=== PATIENT | female | born 1990 | race Caucasian/White ===

== ENCOUNTER 2024-02-14 19:08 | Emergency (ER) | payer OTHER, SELFPAY ==
[2024-02-14 19:19] VITALS: BP 116/79; PULSE 83; TEMP 36.6; O2SAT 100; BMI 34.2
--- NOTE | 2024-02-14 19:25 | XR_ITS ---
The [place] [id number] Patient Name: AMBER MARCOS MRN: [id number] date: 1990 Sex: F Assigned Patient Location: ER Current Patient Location: Accession/Order Number: [id number] Exam Date: 02/14/2024 20:09 Report Date: 02/14/2024 22:00 At the request of: CARINE QUILES Procedure: XR tibia fibula RT 2V EXAM: XR tibia fibula RT 2V , 02/14/2024 HISTORY: Atraumatic pain COMPARISON: None. TECHNIQUE: X-rays of the right tibia and fibula, 4 views. FINDINGS: The bony structures and joint spaces are unremarkable. No fracture or dislocation. The bones are well-mineralized. No obvious soft tissue swelling. No subcutaneous air is seen. Included knee joint and ankle joint appears unremarkable. XR/XR tibia fibula RT 2V IMPRESSION: Unremarkable x-rays of the right tibia and fibula. Electronically authenticated by: LINDSAY AGUILERA Date: 02/14/2024 22:00
--- NOTE | 2024-02-14 19:30 | ED.GENADUL1 ---
HPI HPI - General Adult General Chief complaint: Extremity Injury, Lower Stated complaint: EXTREMITY PAIN Time Seen by Provider: 02/14/24 19:22 Source: patient Mode of arrival: walk-in Limitations: no limitations History of Present Illness HPI narrative: 33-year-old female presents for right anterior lower leg pain. She has had it for a week and there was no injury or unusual activity. The knee and ankle do not hurt but the pain is wrapping around to her calf. It is worse when she walks on it. She has never had an issue with that leg Related Data Home Medications ?Medication ?Instructions ?Recorded ?Confirmed ascorbic acid (vitamin C) 500 mg 500 mg PO DAILY 02/14/24 02/14/24 tablet (C-500) cetirizine 10 mg tablet (24Hour 10 mg PO DAILY 02/14/24 02/14/24 Allergy) cholecalciferol (vitamin D3) 50 50 mcg PO DAILY 02/14/24 02/14/24 mcg (2,000 unit) capsule (Vitamin D3) escitalopram oxalate 10 mg tablet 10 mg PO DAILY 02/14/24 02/14/24 levonorgestrel 0.15 mg-ethinyl See Rx Instructions PO .COMPLEX 02/14/24 02/14/24 estradiol 30 mcg tablets,3 mos pack(91) levothyroxine 137 mcg tablet 137 mcg PO DAILY 02/14/24 02/14/24 (Euthyrox) multivitamin (Daily Multi-Vitamin 1 tab PO DAILY 02/14/24 02/14/24 tablet) Allergies Allergy/AdvReac Type Severity Reaction Status Date / Time No Known Drug Allergies Allergy Verified 02/14/24 19:15 Opioid HPI Opioid Management Most Recent Opioid Data: No Data to Display Review of Systems ROS Narrative A ten point review of systems is negative except as noted above. Exam Narrative Exam Narrative: Nurses note and vital signs reviewed and patient is not hypoxic. General: The patient appears well and in no apparent distress. Patient is resting comfortably on cart. Skin: Warm, dry, no pallor noted. There is no rash noted. Head: Normocephalic, atraumatic Eye: Normal conjunctiva, no drainage Ears, Nose, Mouth, and Throat: oral mucosa is moist. Nares patent. Cardiovascular: Regular Rate and Rhythm Respiratory: Patient is in no distress, no accessory muscle use Back: non-tender GI: Soft and nontender Musculoskeletal: The right leg is examined. Dorsalis pedis pulse 2+. No tenderness in the ankle or any swelling in the ankle. The right knee also is nontender and nonswollen. She has some tenderness in the anterior lower leg, midportion. There is no bruise or rash or break in the skin. Neurological: A&O, normal speech Psychiatric: Cooperative Constitutional Vital Signs, click to edit/add: Last Vital Signs Temp 97.9 F 02/14/24 19:19 Pulse 83 02/14/24 19:19 Resp 14 02/14/24 19:19 BP 116/79 02/14/24 19:19 Pulse Ox 100 02/14/24 19:19 O2 Del Method Room Air 02/14/24 19:19 Course Vital Signs Vital signs: Vital Signs Temperature 97.9 F 02/14/24 19:19 Pulse Rate 83 02/14/24 19:19 Respiratory Rate 14 02/14/24 19:19 Blood Pressure 116/79 02/14/24 19:19 Pulse Oximetry 100 02/14/24 19:19 Oxygen Delivery Method Room Air 02/14/24 19:19 Temperature 97.9 F 02/14/24 19:19 Pulse Rate 83 02/14/24 19:19 Respiratory Rate 14 02/14/24 19:19 Blood Pressure 116/79 02/14/24 19:19 Pulse Oximetry 100 02/14/24 19:19 Oxygen Delivery Method Room Air 02/14/24 19:19 Medical Decision Making MDM Narrative Medical decision making narrative: Superficial thrombophlebitis is identified. She was recommended rest warm compresses and ibuprofen. Findings are discussed thoroughly with the patient. Differential Diagnosis Differential Diagnosis: Superficial thrombophlebitis, DVT, muscle strain Lab Data Lab results reviewed: Yes I reviewed the patient's lab results Labs: Lab Results 02/14/24 Range/Units 19:45 D-Dimer 1.16 H* (<=0.59) mg/L FEU Imaging Data Tibia-fibula x-ray: My impression: No acute findings Discharge Plan Discharge Stand Alone Forms: Portal Instructions Chief Complaint: Extremity Injury, Lower Clinical Impression: Superficial thrombophlebitis Patient Disposition: Home, Self-Care Time of Disposition Decision: 21:24 Condition: Good Mode of Transportation: Private Vehicle Prescriptions / Home Meds: No Action levothyroxine [Euthyrox] 137 mcg tablet 137 mcg PO DAILY escitalopram oxalate 10 mg tablet 10 mg PO DAILY multivitamin [Daily Multi-Vitamin] Tablet 1 tab PO DAILY ascorbic acid (vitamin C) [C-500] 500 mg tablet 500 mg PO DAILY cholecalciferol (vitamin D3) [Vitamin D3] 50 mcg (2,000 unit) capsule 50 mcg PO DAILY cetirizine [24Hour Allergy] 10 mg tablet 10 mg PO DAILY levonorgestrel-ethinyl estrad 0.15 mg-30 mcg (91) tablets,dose pack,3 month See Rx Instructions .ROUTE .COMPLEX Rx Instructions: take 1 tablet daily following the order on blister card(s) Print Language: [place] Instructions: Superficial Thrombophlebitis (ED) Additional Instructions: Warm compresses, elevate and continue ibuprofen Referrals: Haley Stovall NP [Primary Care Provider] - 1 week
[2024-02-14 20:13] LABS: D Dimer 1.16 mg/L FEU (<=0.59)
--- NOTE | 2024-02-14 20:29 | US_ITS ---
The [address] [address] Patient Name: AMBER MARCOS MRN: [id number] date: 1990 Sex: F Assigned Patient Location: ER Current Patient Location: ER Accession/Order Number: [id number] Exam Date: 02/14/2024 20:35 Report Date: 02/14/2024 23:02 At the request of: CARINE QUILES Procedure: US venous doppler LE RT ULTRASOUND OF THE LOWER EXTREMITY VENOUS RIGHT HISTORY: Edema and pain. COMPARISON: None. TECHNIQUE: US with quinonez scale and color doppler of extremity veins. Doppler spectral analysis and color flow were performed. FINDINGS: There is no evidence of thrombus within the visualized veins. There is adequate phasic and spontaneous flow. There is adequate compression. There is adequate augmentation. No evidence of DVT within the visualized veins. There is some noncompressibility involving segments of superficial saphenous vein. US/US venous doppler LE RT IMPRESSION: 1. No evidence of DVT within visualized veins of right lower extremity 2. Superficial thrombophlebitis. Electronically authenticated by: BONY OWUSU Date: 02/14/2024 23:02
== END 2024-02-14 21:40 | disposition home or self-care (01) ==
PROVIDERS: Emergency Provider Emergency Medicine; PCP Nurse Practitioner Family
DX: I80.01 Phlebitis and thrombophlebitis of superficial vessels of right lower extremity (principal)
CPT/HCPCS: 36415; 73590; 85378; 93971; 99285

== ENCOUNTER 2024-06-05 14:01 | Emergency (ER) | payer OTHER, SELFPAY ==
[2024-06-05] VITALS (14 sets, daily range): BP systolic 108–120; BP diastolic 67–79; PULSE 60–109; TEMP 36.7; O2SAT 97–100; BMI 34.5
--- NOTE | 2024-06-05 14:24 | ECG_ITS ---
The [facility] Test Date: 2024-06-05 Pat Name: AMBER HINES Department: Room: - Gender: Female Community Service Representative: : 1990 Requested By: [id number] Order Number: [id number] Reading MD: RICO CURRY Measurements Intervals [place] Rate: 65 P: 52 KS: 170 QRS: 117 QRSD: 90 T: 21 QT: 408 QTc: 419 Interpretive Statements 1100 Sinus rhythm 5120 Possible right ventricular hypertrophy Non-Specific T wave inversion in III 9130 borderline ECG No previous ECG available for comparison Electronically Signed On 06-06-2024 5:13:31 EST by RICO CURRY
--- NOTE | 2024-06-05 14:26 | ED_ITS ---
HPI - Chest Pain General Chief Complaint: Chest Pain Stated Complaint: CHEST PAIN Time Seen by Provider: 06/05/24 14:06 Source: patient Mode of arrival: walk-in Limitations: no limitations History of Present Illness HPI narrative: Patient is a 34-year-old female who presents to the emergency department for a 1 hour history of frontal headache and blurred vision. She states she was at work when she developed blurred vision followed by a bitemporal headache. She states she felt very shaky and reports chest pain. When she is asked to clarify, she states she feels butterflies in her chest. She has no sharp pain. She states someone at work checked her blood pressure and it was 140/90. She states that she was recently referred to a digital strategist by her primary care provider because she had been having intermittent chest discomfort, an EKG was performed in the office and her primary care provider told her that she looks like she has had a heart attack at some point . She was instructed to start taking aspirin. She has an appointment in 6 days with the digital strategist. She has no concern for . She had some nausea when the headache began but has not had any vomiting or diarrhea. No fevers or upper respiratory symptoms. At this time she states she still has the headache and feels weak and shaky. Related Data Home Medications ?Medication ?Instructions ?Recorded ?Confirmed ascorbic acid (vitamin C) 500 mg 500 mg PO DAILY 02/14/24 06/05/24 tablet (C-500) cetirizine 10 mg tablet (24Hour 10 mg PO DAILY 02/14/24 06/05/24 Allergy) cholecalciferol (vitamin D3) 50 50 mcg PO DAILY 02/14/24 06/05/24 mcg (2,000 unit) capsule (Vitamin D3) escitalopram oxalate 10 mg tablet 10 mg PO DAILY 02/14/24 06/05/24 levonorgestrel 0.15 mg-ethinyl See Rx Instructions PO .COMPLEX 02/14/24 02/14/24 estradiol 30 mcg tablets,3 mos pack(91) levothyroxine 137 mcg tablet 137 mcg PO DAILY 02/14/24 06/05/24 (Euthyrox) multivitamin (Daily Multi-Vitamin 1 tab PO DAILY 02/14/24 06/05/24 tablet) aspirin 81 mg chewable tablet 81 mg PO DAILY 06/05/24 06/05/24 (Aspirin Childrens) Allergies Allergy/AdvReac Type Severity Reaction Status Date / Time No Known Drug Allergies Allergy Verified 06/05/24 14:16 Review of Systems ROS Constitutional Denies: fever or chills Ears, nose, mouth, and throat Denies: throat pain Cardiovascular Reports: chest pain Respiratory Denies: shortness of breath or cough Gastrointestinal Reports: nausea; Denies: abdominal pain, vomiting or diarrhea Musculoskeletal Denies: back pain or neck pain Integumentary/Breast Denies: rash Neurological Reports: headache; Denies: numbness in extremities or weakness in extremities Hematologic/Lymphatic Denies: easy bruising or easy bleeding PFSH PFSH Social History Little interest or pleasure in doing things: not at all Feeling down, depressed, or hopeless: not at all Exam Narrative Exam Narrative: Gen.: Awake, alert, in no distress Head: Normocephalic, atraumatic ENT: Moist mucous membranes Respiratory: No respiratory distress, lungs clear bilaterally Cardio: Regular rate and rhythm Gastrointestinal: Abdomen is soft, nondistended and nontender to palpation Extremities: Moves extremities equally Psych: Normal mood and affect Neuro: No focal neuro deficit, alert and oriented with clear speech Skin: Warm, dry, intact Constitutional Vital Signs, click to edit/add: Last Vital Signs Temp 98.0 F 06/05/24 14:12 Pulse 64 06/05/24 14:12 Resp 18 06/05/24 14:12 BP 120/74 06/05/24 14:12 Pulse Ox 100 06/05/24 14:12 O2 Del Method Room Air 06/05/24 14:12 Course Vital Signs Vital signs: Vital Signs Temperature 98.0 F 06/05/24 14:12 Pulse Rate 64 06/05/24 14:12 Respiratory Rate 18 06/05/24 14:12 Blood Pressure 120/74 06/05/24 14:12 Pulse Oximetry 100 06/05/24 14:12 Oxygen Delivery Method Room Air 06/05/24 14:12 Temperature 98.0 F 06/05/24 14:12 Pulse Rate 64 06/05/24 14:12 Respiratory Rate 18 06/05/24 14:12 Blood Pressure 120/74 06/05/24 14:12 Pulse Oximetry 100 06/05/24 14:12 Oxygen Delivery Method Room Air 06/05/24 14:12 MDM - Chest Pain MDM Narrative Medical decision making narrative: Patient was treated with IV Toradol and Zofran. She is hemodynamically stable with unremarkable vital signs and EKG. Laboratory studies reviewed and noted within normal limits including D-dimer, troponin. Patient's TSH is minimally elevated, she does take levothyroxine at home and she was instructed to follow- up with her primary care provider for reevaluation of her thyroid function studies to make any medication adjustments as needed. Patient was given education and reassurance, follow-up closely with PCP and return to the ER if symptoms change or worsen. She apparently already has a cardiology appointment in place and was encouraged to keep that appointment. SUPERVISED APC VISIT, PHYSICIAN ATTESTATION: Based on the medical record the care appears appropriate. ? Medical Records Data Attestation: I reviewed the patient's medical records. Lab Data Attestation: I reviewed the patient's lab results. Labs: Lab Results 06/05/24 Range/Units 14:34 WBC 9.1 (4.0-11.0) 10^3/uL RBC 4.26 (4.20-5.40) 10^6/uL Hgb 12.4 (12.0-16.0) g/dL Hct 37.9 (36.0-48.0) % MCV 89.0 (81.0-99.0) fL MCH 29.1 (26.7-34.0) pg MCHC 32.7 (29.9-35.2) g/dL RDW 12.8 (11.0-15.0) % Plt Count 279 (150-450) 10^3/uL MPV 10.7 (9.5-13.5) fL Neut % (Auto) 66.3 (43.0-75.0) % Lymph % (Auto) 23.1 (20.5-60.0) % [place] % (Auto) 5.9 (1.7-12.0) % Eos % (Auto) 3.6 (0.9-7.0) % Baso % (Auto) 0.9 (0.2-2.0) % Neut # (Auto) 6.0 (1.4-6.5) 10^3/uL Lymph # (Auto) 2.1 (1.2-3.8) 10^3/uL [place] # (Auto) 0.5 (0.3-0.8) 10^3/uL Eos # (Auto) 0.3 (0.0-0.7) 10^3/uL Baso # (Auto) 0.1 (0.0-0.1) 10^3/uL Abs Immat Gran (auto) 0.02 (0.00-0.03) 10^3/uL Imm/Tot Granulo (auto) 0.2 (0.0-0.5) % PT 10.9 (9.0-11.6) sec INR 1.03 D-Dimer 0.42 (<=0.59) mg/L FEU Sodium 141 (136-145) mmol/L Potassium 3.4 L (3.5-5.1) mmol/L Chloride 104 (98-107) mmol/L Carbon Dioxide 29.3 (21.0-32.0) mmol/L Anion Gap 11.1 BUN 7.0 (7.0-18.0) mg/dL Creatinine 0.76 (0.55-1.02) mg/dL Est GFR ( Amer) >60 (>=60 mL/min/1.73m^2) Est GFR (Non-Af Amer) >60 (>=60 mL/min/1.73m^2) BUN/Creatinine Ratio 9.2 Glucose 88 (74-106) mg/dL Calcium 9.6 (8.5-10.1) mg/dL Total Bilirubin 0.2 (0.2-1.0) mg/dL AST 14 L (15-37) U/L ALT 15 (14-59) U/L Alkaline Phosphatase 90 (46-116) U/L Troponin I High Sens <4.0 L (4.0-51.3) pg/mL NT-Pro-B Natriuret Pep 35.0 (<=450.0) pg/mL Total Protein 7.0 (6.4-8.2) g/dL Albumin 3.5 (3.4-5.0) g/dL Globulin 3.5 g/dL Albumin/Globulin Ratio 1.0 TSH 4.552 H (0.358-3.740) uIU/mL Serum HCG, Qual Negative (NEGATIVE) Imaging Data CT scan - head: Attestation: I have reviewed the pertinent imaging results. Radiologist's impression: ITS Impressions Chest X-Ray 06/05/24 15:10 IMPRESSION: No acute infiltrate or evidence of cardiac decompensation. Electronically authenticated by: MEGHAN WILKERSON Date: 06/05/2024 15:[address] 06/05/24 15:10 IMPRESSION: There is no evidence of an intracranial hemorrhage, mass lesion or apparent acute infarct. The visualized paranasal sinuses are clear. A small amount of fluid is seen in the middle ear on the left, and the mastoid sinuses are significantly underdeveloped, with the suggestion of mastoiditis on the left. There is no apparent acute skull fracture. Electronically authenticated by: MEGHAN WILKERSON Date: 06/05/2024 15:46 ECG Data Attestation: I personally reviewed and interpreted this ECG as follows: (Normal sinus rhythm at a rate of 65, no acute ST elevation or ectopy. EKG reviewed by attending physician) Heart Score History: Slightly/Non-Suspicious ECG: NS Repolarization Age: <45 years Risk Factors: 1 or 2 Risk Factors Troponin: <Normal Limit Total Heart Score Recommendations & Risks:: 2 Discharge Plan Discharge Chief Complaint: Chest Pain Clinical Impression: Headache, Chest pain Patient Disposition: Home, Self-Care Time of Disposition Decision: 16:04 Condition: Good Prescriptions / Home Meds: No Action levothyroxine [Euthyrox] 137 mcg tablet 137 mcg PO DAILY escitalopram oxalate 10 mg tablet 10 mg PO DAILY multivitamin [Daily Multi-Vitamin] Tablet 1 tab PO DAILY ascorbic acid (vitamin C) [C-500] 500 mg tablet 500 mg PO DAILY cholecalciferol (vitamin D3) [Vitamin D3] 50 mcg (2,000 unit) capsule 50 mcg PO DAILY cetirizine [24Hour Allergy] 10 mg tablet 10 mg PO DAILY levonorgestrel-ethinyl estrad 0.15 mg-30 mcg (91) tablets,dose pack,3 month See Rx Instructions .ROUTE .COMPLEX Rx Instructions: take 1 tablet daily following the order on blister card(s) aspirin [Aspirin Childrens] 81 mg tablet,chewable 81 mg PO DAILY Print Language: Guatemalan Instructions: Acute Headache (ED), Noncardiac Chest Pain (ED) Referrals: Haley Stovall NP [Primary Care Provider] - 1 week
[2024-06-05 14:47] LABS: Basophils Absolute Auto 0.1 10^3/uL (0.0-0.1); Basophils Percent Auto 0.9 % (0.2-2.0); Eosinophils Absolute Auto 0.3 10^3/uL (0.0-0.7); Eosinophils Percent Auto 3.6 % (0.9-7.0); Hematocrit 37.9 % (36.0-48.0); Hemoglobin 12.4 g/dL (12.0-16.0); Immature Granulocytes Abs Auto 0.02 10^3/uL (0.00-0.03); Immature Granulocytes Pct Auto 0.2 % (0.0-0.5); Lymphocytes Absolute Auto 2.1 10^3/uL (1.2-3.8); Lymphocytes Percent Auto 23.1 % (20.5-60.0); Mean Corpuscular HGB Conc 32.7 g/dL (29.9-35.2); Mean Corpuscular Hemoglobin 29.1 pg (26.7-34.0); Mean Platelet Volume 10.7 fL (9.5-13.5); Monocytes Absolute Auto 0.5 10^3/uL (0.3-0.8); Monocytes Percent Auto 5.9 % (1.7-12.0); Neutrophils Percent Auto 66.3 % (43.0-75.0); Platelet Count 279 10^3/uL (150-450); Red Blood Count 4.26 10^6/uL (4.20-5.40); Red Cell Distribution Width 12.8 % (11.0-15.0); White Blood Count 9.1 10^3/uL (4.0-11.0)
[2024-06-05] MEDS: ONDANSETRON PF 4 MG/2 ML VIAL IV (14:52)
[2024-06-05] MEDS: KETOROLAC TROMETHAMINE 30 MG/ML VIAL IVP (14:52)
[2024-06-05 15:00] LABS: Alanine Aminotransferase 15 U/L (14-59); Albumin Level 3.5 g/dL (3.4-5.0); Alkaline Phosphatase 90 U/L (46-116); Anion Gap 11.1; Aspartate Amino Transferase 14 U/L (15-37); BUN Creatinine Ratio 9.2; Bilirubin Total 0.2 mg/dL (0.2-1.0); Calcium 9.6 mg/dL (8.5-10.1); Carbon Dioxide 29.3 mmol/L (21.0-32.0); Chloride 104 mmol/L (98-107); Estimated GFR (African America >60 (>=60 mL/min/1.73m^2); Estimated GFR (Non-African Ame >60 (>=60 mL/min/1.73m^2); Globulin 3.5 g/dL; Glucose 88 mg/dL (74-106); Potassium 3.4 mmol/L (3.5-5.1); Sodium 141 mmol/L (136-145)
[2024-06-05 15:05] LABS: D Dimer 0.42 mg/L FEU (<=0.59); INR 1.03; Prothrombin Time 10.9 sec (9.0-11.6)
[2024-06-05 15:09] LABS: Thyroid Stimulating Hormone 4.552 uIU/mL (0.358-3.740); Troponin I High Sensitivity <4.0 pg/mL (4.0-51.3)
--- NOTE | 2024-06-05 15:10 | CT_ITS ---
The [address] [address] Patient Name: AMBER HINES MRN: [id number] date: 1990 Sex: F Assigned Patient Location: ER Current Patient Location: ER Accession/Order Number: [id number] Exam Date: 06/05/2024 15:28 Report Date: 06/05/2024 15:46 At the request of: KELLY SANCHEZ Procedure: CT head/brain wo con EXAM: CT head/brain wo con HISTORY: Headache COMPARISON: None. TECHNIQUE: Multiple thin computed tomograms of the head were obtained, with sagittal and coronal reconstructions. Radiation reduction technique and algorithms were utilized during the study. FINDINGS: The ventricles are not enlarged, the lateral ventricles are symmetric and the third ventricles in the midline. The sylvian fissures and cortical sulci are unremarkable. There is no evidence of an intracranial hemorrhage, mass lesion or apparent acute infarct. No focal abnormalities identified the deep white matter. The cerebellum and visualized brainstem are intact. The visualized paranasal sinuses appear clear. There is some fluid in the middle ear on the left, while there is good aeration of the middle ear on the right. The mastoid sinuses are significantly underdeveloped bilaterally with the suggestion of mild mastoiditis on the left. The mastoid sinuses on the right are clear. There is no apparent acute skull fracture. CT/CT head/brain wo con IMPRESSION: There is no evidence of an intracranial hemorrhage, mass lesion or apparent acute infarct. The visualized paranasal sinuses are clear. A small amount of fluid is seen in the middle ear on the left, and the mastoid sinuses are significantly underdeveloped, with the suggestion of mastoiditis on the left. There is no apparent acute skull fracture. Electronically authenticated by: MEGHAN WILKERSON Date: 06/05/2024 15:46
--- NOTE | 2024-06-05 15:10 | XR_ITS ---
The [address] [address] Patient Name: AMBER HINES MRN: [id number] date: 1990 Sex: F Assigned Patient Location: ER Current Patient Location: ER Accession/Order Number: [id number] Exam Date: 06/05/2024 15:28 Report Date: 06/05/2024 15:58 At the request of: KELLY SANCHEZ Procedure: XR chest 1V EXAM: XR chest 1V at 1520 hours HISTORY: Chest pain COMPARISON: None. TECHNIQUE: AP upright portable chest x-ray FINDINGS: The heart is not enlarged and the vasculature is not distended. No acute infiltrate, effusion or pneumothorax is identified. The osseous structures are grossly intact. XR/XR chest 1V IMPRESSION: No acute infiltrate or evidence of cardiac decompensation. Electronically authenticated by: MEGHAN WILKERSON Date: 06/05/2024 15:58
[2024-06-05 15:17] LABS: HCG Qualitative NEGATIVE (NEGATIVE); Internal Control Within Normal Limits
== END 2024-06-05 16:16 | disposition home or self-care (01) ==
PROVIDERS: Physician Assistant; Emergency Provider Emergency Medicine; PCP Nurse Practitioner Family
DX: R51.9 Headache, unspecified (principal); R07.9 Chest pain, unspecified
CPT/HCPCS: 36415; 70450; 71045; 80053; 83880; 84443; 84484; 84703; 85025; 85378; 85610; 93005; 96374; 96375; 99285; J1885; J2405